=== PATIENT | female | born 1995 | race Caucasian/White ===

== ENCOUNTER 2018-03-09 16:16 | Emergency (ER) | payer OTHER ==
[~2018-03-09] VITALS: Ht 154.9 cm; Wt 102.1 kg
[~2018-03-09 16:16] MED LIST: BACTRIM,SEPT1 TABLET PO; CLEOCIN300 MG PO
[2018-03-09 18:24] LABS: HEMATOCRIT 35.8 % (36.0-46.0); HEMOGLOBIN 12.3 G/DL (11.9-15.5); MCH 30.4 PG (29.0-34.0); MCHC 34.4 G/DL (30.0-36.0); MCV 88.4 FL (83-99); PLATELET COUNT 369 K/uL (156-360); RBC DIS.WIDTH-CV 14.3 % (11.8-14.6); RED BLOOD COUNT 4.05 M/uL (3.80-5.20); WHITE BLOOD COUNT 14.5 K/uL (4.1-10.2)
[2018-03-09 18:33] LABS: CHLORIDE 108 mEq/L (99-109); POTASSIUM 3.5 mEq/L (3.7-5.4); SODIUM 143 mEq/L (136-147)
[2018-03-09 18:34] LABS: GLUCOSE 94 mg/dL (70-99)
[2018-03-09 18:38] LABS: CREATININE 0.8 mg/dL (0.6-1.3); GFR ESTIMATE (CALCULATED) > 59 mL/min/
[2018-03-09 18:39] LABS: UREA NITROGEN (BUN) 12 mg/dL (9-23)
[2018-03-09 18:47] LABS: QUANTITATIVE HCG < 4.0 MIU/ML
[2018-03-09] MEDS ORDERED: PERCOCET 5/31 TABLET PO (20:21)
[2018-03-09 21:32] VITALS: BP 118/63
== END 2018-03-09 21:33 | disposition home or self-care (01) ==
LOC: RME 16:16 → EME 16:16 → RME 21:33
PROVIDERS: Physician Assistant
DX: L72.3 Sebaceous cyst (principal); N94.89 Other specified conditions associated with female genital organs and menstrual cycle
CPT/HCPCS: 76882; 80048; 84702; 85027; 99281; 99284; J1335; J7050

== ENCOUNTER 2018-03-12 02:49 | Emergency (ER) | payer OTHER ==
[~2018-03-12] VITALS: Ht 154.9 cm; Wt 101.6 kg
[~2018-03-12 02:49] MED LIST changes: +PERCOCET 5/31 TABLET PO
[2018-03-12 05:42] LABS: HEMATOCRIT 33.5 % (36.0-46.0); HEMOGLOBIN 11.5 G/DL (11.9-15.5); MCH 30.3 PG (29.0-34.0); MCHC 34.3 G/DL (30.0-36.0); MCV 88.4 FL (83-99); PLATELET COUNT 343 K/uL (156-360); RBC DIS.WIDTH-SD 45.6 % (39-53); RED BLOOD COUNT 3.79 M/uL (3.80-5.20)
[2018-03-12 05:51] LABS: CHLORIDE 107 mEq/L (99-109); POTASSIUM 3.8 mEq/L (3.7-5.4); SODIUM 142 mEq/L (136-147)
[2018-03-12 05:52] LABS: GLUCOSE 106 mg/dL (70-99)
[2018-03-12 05:56] LABS: CREATININE 0.7 mg/dL (0.6-1.3); GFR ESTIMATE (CALCULATED) > 59 mL/min/
[2018-03-12 05:57] LABS: UREA NITROGEN (BUN) 9 mg/dL (9-23)
[2018-03-12 06:41] VITALS: BP 124/84
== END 2018-03-12 06:41 | disposition home or self-care (01) ==
LOC: EME 02:49
PROVIDERS: Emergency Medicine
DX: L02.215 Cutaneous abscess of perineum (principal); N89.8 Other specified noninflammatory disorders of vagina; Z88.0 Allergy status to penicillin
CPT/HCPCS: 76882; 80048; 85027; 87210; 99281; 99284